=== PATIENT | female | born 1980 | race Caucasian/White ===

== ENCOUNTER 2021-03-07 18:37 | Emergency (ER) | payer BC, SELFPAY ==
--- NOTE | 2021-03-07 21:04 | HMH.EDUTC ---
[facility] [place] Disposition Clinical Impression: Viral syndrome, Exposure to COVID-19 virus, Bronchitis Disposition: Home, Self-Care Condition on Discharge: Good Instructions: Preventing the Spread of Coronavirus Discharge Instructions, DI for COVID-19 (Suspected or Confirmed ), DI for Pharyngitis/Tonsillopharyngitis -- Adult, Sore Throat Additional Instructions: Drink plenty of fluids. Take tylenol or ibuprofen for pain or fever. Take the medications as directed. Follow up with your regular doctor. GO TO THE ER FOR ANY WORSENING SYMPTOMS Quarantine until you know the results of your covid-19 test. Notify your school or workplace of your results and follow their instructions regarding return to work/school. The cough medication (promethazine dm) will make you drowsy, so don't drive or operate heavy machinery after taking it. Prescriptions: Promethazine/Dextromethorphan [Promethazine-Dm Syrup] 5 ml PO Q6HP PRN #240 ml PRN Reason: Cough Transmission Status: Pending to [id number] methylPREDNISolone [Medrol] 4 mg PO DIRECTED 6 Days #21 packet Transmission Status: Pending to [id number] guaiFENesin [Mucinex 600mg tablet] 1 - 2 tab PO BIDP PRN #30 tab PRN Reason: Congestion Transmission Status: Pending to [facility] Azithromycin [Z-Eduardo 250mg Tab*] 250 mg PO UD DOSE PK #6 tab Transmission Status: Pending to [id number] Referrals: Vern Snell MD [Primary Care Provider] - Forms: Work/School Release Time of Disposition: 21:53 Medical Decision Making - Medical Records Medical records reviewed: No: I reviewed the patient's medical records. - Jefferson Inquiry Pt receiving controlled substance: No Vital Signs: 03/07/21 21:19 Temperature 100 F H Temperature Source Oral Pulse Rate [Left] 78 Respiratory Rate 16 Blood Pressure [Right Arm] 119/82 Blood Pressure Mean [Right Arm] 94 02 Sat by Pulse Oximetry 98 - Lab Data Lab results reviewed: Yes: I reviewed the patient's lab results. Lab Results 03/07/21 21:08: Group A Strep Rapid Negative 03/07/21 21:12: Influenza Type A Ag Negative, Influenza Type B Ag Negative Orders (Tests/Meds): ORDERS Category Date Time Status Covid-19 Nasal PCR ([facility]) Routine Lab 03/07/21 21:08 Received Strep Screen Confirmation Stat Micro 03/07/21 21:08 Received [facility] [place] HPI - General Stated complaint: covid test/treated for symptoms Time Seen by Provider: 03/07/21 21:04 - History of Present Illness Provider Complaint: She states that for the past 2 days she has had cough, chest congestion, sore throat, sinus congestion, and a runny nose. She has had chills and low grade fever and body aches also. She has been vaccinated against covid-19. - Related Data Previous Rx's Medication Instructions Recorded Azithromycin [Z-Eduardo 250mg Tab*] 250 mg PO UD DOSE PK #6 tab 03/07/21 Promethazine/Dextromethorphan 5 ml PO Q6HP PRN #240 ml 03/07/21 [Promethazine-Dm Syrup] guaiFENesin [Mucinex 600mg tablet] 1 - 2 tab PO BIDP PRN #30 tab 03/07/21 methylPREDNISolone [Medrol] 4 mg PO DIRECTED 6 Days #21 03/07/21 packet Allergies Allergy/AdvReac Type Severity Reaction Status Date / Time No Known Allergies Allergy Verified 03/07/21 21:28 [facility] History - Hepatitis A Screen Attestation statement:: This patient has been screened for Hepatitis A risk factors. I have reviewed the patient's past medical history: Yes ROS Obtained: Yes All systems reviewed & no additional complaints - Constitutional Constitutional: Reports as per HPI - Eyes Eyes: Denies eye discharge - Cardiovascular Cardiovascular: Denies chest pain - Respiratory Respiratory: Reports chest congestion, Reports cough, Denies dyspnea, Denies stridor, Denies wheezing Physical Exam - General General appearance: alert, in no apparent distress - Head Head exam: atraumatic, normocephalic, normal inspection - Eye Eye exam: Present: no
[2021-03-07 21:19] VITALS: BP 119/82; PULSE 78; RESP 16; TEMP 37.7; O2SAT 98; BMI 25.0
[2021-03-07 21:28] LABS: UTC Influenza A Antigen Negative (Negative); UTC Influenza B Antigen Negative (Negative)
[2021-03-07 21:31] LABS: Strep Scrn Group A (Rapid) Negative (Negative)
[2021-03-07 22:09] VITALS: BP 119/82; PULSE 78; RESP 16; TEMP 37.7
== END 2021-03-07 22:10 | disposition home or self-care (01) ==
PROVIDERS: Emergency Provider Nurse Practitioner Family; PCP Family Medicine
DX: U07.1 COVID-19 (principal); J20.9 Acute bronchitis, unspecified
CPT/HCPCS: 87430; 87804; 99203; C9803; G0463; U0003; U0005

== ENCOUNTER 2021-06-11 19:27 | Emergency (ER) | payer BC, SELFPAY ==
[2021-06-11 19:30] VITALS: BP 140/82; PULSE 64; RESP 18; TEMP 37; O2SAT 98; BMI 25.0
[2021-06-11 19:44] LABS: Adenovirus,PCR Not Detected (NotDetected); Bordetella Pertussis Not Detected (NotDetected); Chlamydophila Pneumoniae, PCR Not Detected (NotDetected); Coronavirus 19, PCR Not Detected (NotDetected); Coronavirus 229E Not Detected (NotDetected); Coronavirus NL63 Not Detected (NotDetected); Coronavirus OC43 Not Detected (NotDetected); Coronovirus HKU1,PCR Not Detected (NotDetected); Human Metapneumovirus Not Detected (NotDetected); Influenza A, PCR Not Detected (NotDetected); Influenza AH1, 2009 Not Detected (NotDetected); Influenza AH1, PCR Not Detected (NotDetected); Influenza AH3,PCR Not Detected (NotDetected); Influenza B, PCR Not Detected (NotDetected); Mycoplasma Pneumoniae, PCR Not Detected (NotDetected); Parainfluenza 1, PCR Not Detected (NotDetected); Parainfluenza 2, PCR Not Detected (NotDetected); Parainfluenza 3, PCR Not Detected (NotDetected); Parainfluenza 4, PCR Not Detected (NotDetected); Respiratory Syncytial Virus Not Detected (NotDetected); Rhinovirus/Enterovirus Not Detected (NotDetected)
[2021-06-11 19:50] VITALS: BP 140/82; PULSE 64; RESP 18; TEMP 37; O2SAT 98
--- NOTE | 2021-06-11 20:01 | HMH.EDUTC ---
[facility] [place] Disposition Clinical Impression: Exposure to COVID-19 virus Disposition: Home, Self-Care Condition on Discharge: Good Instructions: DI for COVID-19 (Suspected or Confirmed ), Preventing the Spread of Coronavirus Discharge Instructions Additional Instructions: *Monitor Temp, Over the counter Motrin or Tylenol as directed/as needed Tylenol every 4 hours and Motrin every 6 hours (as long as your family doctor has told you that you can take it) for fever or pain. and straight to ER if unable to lower temp less than 101.0 after medication given *Warm salt water gargles may help to soothe the throat *Throat Lozenges *Warm fluids like tea with honey may help to soothe the throat *Sleep elevated *Humidifier/Vaporizer *You may check the results of your COVID test on the [facility] my Health portal it should be available in the next 24-48 hours Follow up IMMEDIATELY for new or worsening symptoms or no Noticeable improvement over the next 48-72 hours. 911 for difficulty breathing or swallowing Referrals: Vern Snell MD [Primary Care Provider] - As needed Forms: Work/School Release Time of Disposition: 20:06 Medical Decision Making - Jefferson Inquiry Pt receiving controlled substance: No Jefferson was queried for this patient: No Vital Signs: 06/11/21 19:30 06/11/21 19:50 Temperature 98.6 F 98.6 F Temperature Source Oral Pulse Rate 64 Pulse Rate [Left Brachial] 64 Respiratory Rate 18 18 Blood Pressure 140/82 Blood Pressure [Left Arm] 140/82 Blood Pressure Mean [Left Arm] 101 Blood Pressure Source [Left Arm] Automatic Cuff Blood Pressure Position [Left Arm] Sitting 02 Sat by Pulse Oximetry 98 Oxygen Delivery Method Room Air Orders (Tests/Meds): ORDERS Category Date Time Status Full Resp Panel w/COVID ([facility]) Routine Lab 06/11/21 19:35 Received [facility] [place] HPI - General Stated complaint: exposure to covid; wants test Time Seen by Provider: 06/11/21 20:01 Mode of Arrival: Ambulatory Source of Information: Patient Limitations: No Limitations Description of Symptoms (Recalled from Triage Doc. by RN): COVID TEST D/T EXPOSURE. C/O NASAL CONGESTION HEENT Symptoms (Recalled from RN notes): Yes Resp Symptoms (Recalled from RN notes): No Skin Symptoms (Recalled from RN notes): No MS Symptoms (Recalled from RN notes): No Functional Status (Recalled from RN notes): WNL - History of Present Illness Provider Complaint: Patient states that her work informed her that she was recently exposed to someone that tested positive for COVID and recommended that she get tested States that she is not having any symptoms except nasal congestion but she has that around this time every year - Related Data Previous Rx's Medication Instructions Recorded Azithromycin [Z-Eduardo 250mg Tab*] 250 mg PO UD DOSE PK #6 tab 03/07/21 Promethazine/Dextromethorphan 5 ml PO Q6HP PRN #240 ml 03/07/21 [Promethazine-Dm Syrup] guaiFENesin [Mucinex 600mg tablet] 1 - 2 tab PO BIDP PRN #30 tab 03/07/21 methylPREDNISolone [Medrol] 4 mg PO DIRECTED 6 Days #21 03/07/21 packet Allergies Allergy/AdvReac Type Severity Reaction Status Date / Time No Known Allergies Allergy Verified 03/07/21 21:28 - Worker's Comp Is this a Worker's Comp case?: No [facility] History - Hepatitis A Screen Attestation statement:: This patient has been screened for Hepatitis A risk factors. I have reviewed the patient's past medical history: Yes ROS Obtained: Yes All systems reviewed & no additional complaints, Yes Systems reviewed as appropriate & no additional complaints - Constitutional Constitutional: Reports system reviewed and no additional complaints, except as docu, Denies body ache, Denies chills, Denies fever(s) - Eyes Eyes: Reports system reviewed and no additional complaints, except as docu - ENT Ears, Nose, Mouth, and Throat: Reports system reviewed and no additional complaints, except as docu, Reports nasal congestion, Denies sor
== END 2021-06-11 20:10 | disposition home or self-care (01) ==
PROVIDERS: Emergency Provider Nurse Practitioner; PCP Family Medicine
DX: Z03.89 Encounter for observation for other suspected diseases and conditions ruled out (principal); R09.81 Nasal congestion; Z20.822 Contact with and (suspected) exposure to COVID-19; Z79.52 Long term (current) use of systemic steroids
CPT/HCPCS: 87581; 87632; 87798; 99213; C9803; G0463; U0003; U0005

== ENCOUNTER → 2022-03-23 09:36 | Outpatient (CLI) | payer BC, SELFPAY ==
[2022-03-23 10:53] LABS: Alanine Aminotransferase 21 U/L (12-78); Albumin Level 4.6 g/dl (3.5-5.0); Alkaline Phosphatase 104 U/L (38-126); Aspartate Amino Transferase 25 U/L (14-36); Bilirubin,Direct 0.1 mg/dl (0.0-0.4); Bilirubin,Indirect 0.6 mg/dL (0.0-0.9); Bilirubin,Total 0.7 mg/dl (0.2-1.3); Bilirubin,Unconjugated 0.5 mg/dL (0.0-1.1); Chol/HDL Ratio 3.6 (1-3.5); Cholesterol 172 mg/dl (140-200); HDL Cholesterol 48 mg/dl (40-60); Total Protein,Serum 7.1 g/dl (6.3-8.2); Triglycerides 83 mg/dl (30-150); VLDL Cholesterol 17 mg/dL (0-40)
[2022-03-23 11:04] LABS: Direct LDL Cholesterol 110.36 mg/dL (100-129)
[2022-03-23 11:15] LABS: Troponin I < 0.01 ng/ml (0.00-0.034)
== END ==
PROVIDERS: PCP Family Medicine; Visit Provider Nurse Practitioner
DX: R07.9 Chest pain, unspecified (principal); E78.5 Hyperlipidemia, unspecified
CPT/HCPCS: 36415; 80061; 80076; 84484

== ENCOUNTER 2023-11-28 13:52 | Outpatient (CLI) | payer BC, SELFPAY ==
--- NOTE | 2023-11-28 13:52 | MM_ITS ---
PROCEDURE INFORMATION: Exam: MG Bilateral Screening 3D Mammography Exam date and time: 11/28/2023 1:42 PM Age: 43 years old Clinical indication: Screening exam. TECHNIQUE: Imaging protocol: Bilateral Screening tomosynthesis and 2D mammography including computer-aided detection (CAD) when performed. COMPARISON: No relevant prior studies available. FINDINGS: MAMMOGRAPHY: Breast composition: The breasts are heterogeneously dense, which may obscure small masses. Mass: Multiple similar-appearing round and oval circumscribed low-density masses in both breasts, a benign finding. Architectural distortion: Small questioned region of architectural distortion/architectural change in the central right breast middle depth. Calcifications: No suspicious calcifications. Asymmetric density: None. Skin thickening: None. Axillary adenopathy: None. IMPRESSION: Questioned region of architectural distortion/change in the right breast.Recommend right breast diagnostic mammogram including spot compression views of the right breast in the CC and MLO projections, a full 90 degree lateral view, and right breast ultrasound for further evaluation. ASSESSMENT: BI-RADS Category 0: Incomplete- Need Additional Imaging Evaluation.
== END 2023-11-28 23:59 | disposition home or self-care (01) ==
LOC: RAD 13:52
PROVIDERS: PCP Family Medicine; Visit Provider Obstetrics & Gynecology
DX: Z12.31 Encounter for screening mammogram for malignant neoplasm of breast (principal)
CPT/HCPCS: 77063; 77067

== ENCOUNTER 2023-12-07 16:45 | Emergency (ER) | payer BC, SELFPAY ==
--- NOTE | 2023-12-07 18:08 | ED_ITS ---
Discharge Plan Disposition Patient Disposition: Home, Self-Care Condition: Good Prescriptions Prescriptions: New diphenhydramine HCl 25 mg capsule 25 mg PO Q6HP PRN (Reason: Itching) Qty: 30 0RF methylprednisolone 4 mg Tablets,Dose Pack 4 mg PO DIRECTED 6 Days Qty: 21 0RF Rx Instructions: Take 1 pack as directed for 6 days No Action colestipol 1 gram tablet 1 g PO DAILY cholecalciferol (vitamin D3) 1,250 mcg (50,000 unit) capsule 1,250 mcg PO WEEKLY Referrals Follow up/Referrals: Vern Snell MD [Primary Care Provider] - See instructions Activity Restrictions/Add. Instructions Additional Instructions/Restrictions: Try to identify and avoid contact with the offending substance. Don't start the oral steroids until tomorrow. The diphenhydramine (benedryl) will make you drowsy, so don't drive or operate heavy machinery after taking it. Follow up with your regular doctor. GO TO THE ER FOR ANY WORSENING SYMPTOMS OR CONCERNS Clinical Impressions Clinical Impression: Allergic reaction Stand Alone Forms Stand Alone Forms: Work/School Release Instructions Patient Instructions: DI for General Allergic Reactions, Diphenhydramine, Methylprednisolone, Dexamethasone Injection Print Language Print Language: [place] Discharge ED Provider: Bernardino Ferraro [facility] General Stated complaint: Eye swelling Time Seen by Provider: 12/07/23 18:07 History of Present Illness Provider Complaint: She states that since this morning she has had swelling of her left eye lids. She denies any injury or foreign body. She states that she used a new shampoo yesterday and in the past she has had reactions to different shampoos. She denies any eye pain. Related Data Home Medications ?Medication ?Instructions ?Recorded ?Confirmed cholecalciferol (vitamin D3) 1,250 1,250 mcg PO WEEKLY 03/23/22 11/19/23 mcg (50,000 unit) capsule colestipol 1 gram tablet 1 g PO DAILY 03/23/22 11/19/23 Previous Rx's ?Medication ?Instructions ?Recorded diphenhydramine HCl 25 mg capsule 25 mg PO Q6HP PRN Itching #30 caps 12/07/23 methylprednisolone 4 mg tablets in 4 mg PO DIRECTED 6 days #21 tabs 12/07/23 a dose pack Allergies Allergy/AdvReac Type Severity Reaction Status Date / Time No Known Allergies Allergy Verified 11/19/23 13:06 [facility] Disclaimer: The information contained in this section may have been updated after the patient was seen, as this information can be updated by other users. Medical History History of depression History of PCOS Hx of anxiety disorder Surgical History Hx of wisdom tooth extraction Hx of cholecystectomy Family History Mother Heart attack Hypertension Diabetes Cancer Father Hypertension Cancer Social History Smoking Status: Current every day smoker tobacco type: cigarettes alcohol intake: never substance use type: denies use current occupational status: employed Travel in the last 8 weeks: Inside the [place] ROS Obtained: Yes All systems reviewed & no additional complaints except as documented Constitutional Constitutional: Denies chills and Denies fever(s) Eyes Eyes: Reports as per HPI and Denies eye discharge ENT Ears, Nose, Mouth, and Throat: Denies dizziness, Denies otalgia and Denies sore throat Cardiovascular Cardiovascular: Denies chest pain Respiratory Respiratory: Denies shortness of breath, Denies chest congestion, Denies cough, Denies stridor and Denies wheezing Gastrointestinal Gastrointestingal: Denies nausea or vomiting Musculoskeletal Musculoskeletal: Reports system reviewed and no additional complaints, except as documented and Denies arthralgias Integumentary/Breasts Skin/Breast: Reports as per HPI Neurologic Neurologic: Denies dizziness and Denies paresthesias Allergic/Immunologic Allergic/Immunologic: Denies wheezing Physical Exam General General appearance: alert and in no apparent distress Head Head exam: atraumatic, normocephalic and normal inspection Eye Eye exam: Present PERRL and EOMI Expanded Eye Exam Eyelids: left: swelling eyelids and right: normal inspection Pupils: Left: size (2), Right: size (2) and Bilateral: regular, round and reactive Sclera/Conjunctival: bilateral: normal inspection ENT ENT exam: Present normal exam, normal oropharynx, mucous membranes moist, TM's normal bilaterally and normal external ear exam Neck Neck exam: Present normal inspection, full ROM and trachea midline; Absent meningismus or lymphadenopathy Chest Chest inspection: Present normal inspection and symmetric chest wall rise; Absent tenderness Respiratory Respiratory exam: Present normal lung sounds bilaterally; Absent respiratory distress Cardiovascular Cardiovascular exam: Present regular rate and normal rhythm; Absent JVD Abdominal Exam Abdominal exam: Present soft and normal bowel sounds; Absent distention, tenderness or guarding Extremities Exam Extremities exam: Present normal inspection, full ROM and normal capillary refill; Absent calf tenderness Back Exam Back exam: Present normal inspection; Absent tenderness Neurological Exam Neurological exam: Present alert and oriented X3 Psychiatric Psychiatric exam: Present normal affect and normal mood Skin Skin exam: Present warm, dry, intact and normal color Lymphatic Lymphatic Findings: no adenopathy Medical Decision Making Medical Records Medical records reviewed: No I reviewed the patient's medical records. Screening: Per USPSTF and CDC recommendations, given the prevalence of disease in our region, it is our hospital?s policy to screen for HIV and viral Hepatitis for all patients aged 18 and over and those with ongoing risk factors. [place] Inquiry Pt receiving controlled substance: No
[2023-12-07 18:10] VITALS: BP 134/79; PULSE 76; RESP 18; TEMP 37.4; O2SAT 99; BMI 27.3
[2023-12-07] MEDS: DEXAMETHASONE 4MG/ML 1ML VIAL 8 MG IM (18:17)
[2023-12-07 18:27] VITALS: BP 134/79; PULSE 76; RESP 18; TEMP 37.4
== END 2023-12-07 18:30 | disposition home or self-care (01) ==
PROVIDERS: Emergency Provider Nurse Practitioner Family; PCP Family Medicine
DX: T78.40XA Allergy, unspecified, initial encounter (principal)
CPT/HCPCS: 96372; 99213; G0381; J1100

== ENCOUNTER 2023-12-24 14:30 | Outpatient (CLI) | payer BC, SELFPAY ==
--- NOTE | 2023-12-24 14:34 | MM_ITS ---
PROCEDURE INFORMATION: Exam: US Right Breast, Complete MG Right Diagnostic Breast Tomosynthesis Exam date and time: 12/24/2023 2:49 PM Age: 43 years old Clinical indication: Recalling basis of screening mammogram 11/28/2023 for further evaluation of questioned right architectural distortion. TECHNIQUE: Imaging protocol: Complete ultrasound of all four quadrants of the right breast and the retroareolar regions, including ultrasound of the axilla when performed. Right Diagnostic tomosynthesis and 2D mammography including computer-aided detection (CAD) when performed. Unilateral or bilateral exam. COMPARISON: MG MM DIG MAMM DX UNILAT RT CAD 12/24/2023 2:19 PM FINDINGS: MAMMOGRAPHY: Breast composition: The breast is heterogeneously dense, which may obscure small masses based on the most recent screening mammogram report. Breast mammogram findings: Spot compression demonstrates less prominent, not suspicious appearing, architectural distortion in the central breast middle depth, with slight deformity of breast tissue likely displaced by 2 prominent (3-4 cm adjacent masses). ULTRASOUND: Breast ultrasound findings: Right sonography, all 4 quadrants, retroareolar and axilla. Multiple cysts, complicated cyst with thin avascular echoes, and cysts with low-level avascular echoes. Largest is at 11 o'clock 1 cm from the nipple measuring 3.3 by 2.4 x 3.3 cm. At 12 o'clock 5 cm from the nipple, 2 adjacent cysts, 1 with thin avascular echoes measuring 1.5 x 1.6 x 1.2 cm and the other with low-level avascular echoes measuring 1.6 x 1.7 x 1.4 cm, with no related mass or non masslike sonographic finding, in the central region which appears to correspond to the questioned architectural distortion. Also, retroareolar, more likely dilated ducts with isoechoic tissue and no definite mass. Sonographically unremarkable axillary lymph node. IMPRESSION: Question architectural distortion appears less prominent and likely reflects islands of tissue adjacent to cysts. Multiple probably benign cystic changes. Suggest six-month follow-up right diagnostic mammogram and right sonogram unless otherwise clinically indicated. ASSESSMENT: BI-RADS Category 3: Probably benign.
== END 2023-12-24 23:59 | disposition home or self-care (01) ==
LOC: RAD 14:31
PROVIDERS: PCP Family Medicine; Visit Provider Obstetrics & Gynecology
DX: R92.8 Other abnormal and inconclusive findings on diagnostic imaging of breast (principal)
CPT/HCPCS: 76641; 77061; 77065; G0279

== ENCOUNTER 2024-06-20 12:49 | Outpatient (CLI) | payer BC, SELFPAY ==
--- NOTE | 2024-06-20 12:55 | MM_ITS ---
PROCEDURE INFORMATION: Exam: US Right Breast, Complete MG Right Diagnostic Breast Tomosynthesis Exam date and time: 06/20/2024 1:13 PM Age: 43 years old Clinical indication: Follow-up of probably benign findings in the right breast. TECHNIQUE: Imaging protocol: Complete ultrasound of all four quadrants of the right breast and the retroareolar regions, including ultrasound of the axilla when performed. Right Diagnostic tomosynthesis and 2D mammography including computer-aided detection (CAD) when performed. Unilateral or bilateral exam. COMPARISON: US BREAST RT COMPLETE 12/24/2023 2:49 PM FINDINGS: MAMMOGRAPHY: Breast composition: The breasts are extremely dense, which lowers the sensitivity of mammography. Breast mammogram findings: In the right breast there are innumerable circumscribed ovoid and minimally lobulated masses that are consistent with multiple cysts. There is no dominant or suspicious mass. No distortion or suspicious calcifications. ULTRASOUND: Breast ultrasound findings: Scanning of the right breast demonstrates numerous similar simple and mildly complicated cysts throughout the entire right breast, the largest at the 9 o'clock axis that measures 2.7 x 2.8 x 2.4 cm. There is no dominant or suspicious mass. No shadowing or distortion. No axillary adenopathy. IMPRESSION: Innumerable cysts throughout the right breast, similar to findings on ultrasound dated 12/24/2023. There is waxing and waning of some of the cysts. For this reason, six-month follow-up diagnostic mammogram and ultrasound are recommended. ASSESSMENT: BI-RADS Category 3: Probably benign.
== END 2024-06-20 23:59 | disposition home or self-care (01) ==
LOC: RAD 12:49
PROVIDERS: PCP Family Medicine; Visit Provider Obstetrics & Gynecology
DX: R92.8 Other abnormal and inconclusive findings on diagnostic imaging of breast (principal)
CPT/HCPCS: 76641; 77061; 77065; G0279